=== PATIENT | male | born 1950 | race Caucasian/White ===

== ENCOUNTER 2018-05-02 08:00 | Day surgery (SDC) | payer BC, SELFPAY ==
[2018-05-02 08:45] VITALS: BP 152/85; PULSE 72; RESP 16; TEMP 36.6; O2SAT 98
[2018-05-02] MEDS: Lactated Ringers 1,000 ML 30 ML IV (09:24)
--- NOTE | 2018-05-02 10:43 | W.PM.HP.N ---
Date of service: 05/02/18 Time of Service: 10:44 Assessment and Plan (1) Personal history of colonic polyps: Current visit: Yes Status: Acute I reviewed the colonoscopy procedure with Mr. Forte. I discussed the risks of the procedure with him. All his questions were answered to his satisfaciton. History of Present Illness Chief Complaint: Personal history of colon polyps Narrative: 67 y/o male referred for colorectal cancer screening. He has a history of colon polyps with a tubular adenoma found at last colonoscopy. He has been asymptomatic since his last colonoscopy. He has no family history of colorectal cancer. Review of Systems Review of Systems All systems reviewed & are unremarkable except as noted in HPI and below PFSH Family History Mother Neoplasm Father No problems noted. Sister No problems noted. Medical History Decreased hearing Essential hypertension History of tobacco use Hx of inguinal hernia repair Hyperlipidemia Rosacea S/P medial meniscectomy of right knee Tubular adenoma of colon Social History Smoking/Tobacco Use Status: Former Tobacco Use alcohol intake: current alcohol intake frequency: a few times a month substance use type: does not use Surgical History Colonoscopy - MAC (~2009) HERNIA REPAIR KNEE REPAIR Repair of inguinal hernia Repair of umbilical hernia Meds Home Medications Medication Instructions Recorded Confirmed Type Centrum Silver Tablet 1 ea PO DAILY 08/25/13 05/02/18 History glucosamine sulfate 2KCl 1,000 mg PO DAILY 08/26/13 05/02/18 History Varicella-Zoster Ge Vac,2 of 2 50 mcg IM ONCE vial 01/28/18 05/02/18 History [Shingrix Ge Antigen Component] aspirin 81 mg PO DAILY tab-cap 03/31/18 04/30/18 History Allergies Allergy/AdvReac Type Severity Reaction Status Date / Time No Known Allergies Allergy Unverified 03/31/18 09:31 Exam Const General: cooperative, healthy appearing and comfortable Nutritional Appearance: well nourished and obese Orientation: alert, awake and oriented x3 HENMT Head: normocephalic and atraumatic Ears: hearing grossly normal bilaterally Face and sinus: normal facial exam Mouth: oral mucosae normal Eyes General: appearance normal, both eyes and all related structures Sclera: sclerae normal Pupils: PERRL EOM: EOM intact bilaterally Neck Neck: normal visual inspection, trachea midline and supple Resp Effort & Inspection: normal respiratory effort, no audible wheezes, not labored and no tracheal deviation Cardio Jugular venous pressure: no JVD Rate: regular rate Rhythm: regular rhythm GI Inspection: normal to inspection and non-distended Palpation: soft, no guarding and nontender
--- NOTE | 2018-05-02 10:44 | W.COLOREPORT ---
Date of service: 05/02/18 Time of Service: 10:44 Colonoscopy Report Date of procedure: 05/02/18 Pre-op diagnosis general: Personal history of colon polyps Post-op diagnosis procedure note: other (1. Ascending colon polyp 2. Mild sigmoid diverticulosis) Procedure: Colonoscopy to the cecum with biopsy by cold forceps Surgeon: Paul Everett Anesthesia proc note operative: MAC (Aga Oakes, JEANNIE ASA 2, Mallampati class II) Estimated blood loss (mL): 1 Pathology: other (Ascending colon polyp) Complications: None Disposition: same day Indications: 67 y/o male referred for colorectal cancer screening. He has a history of colon polyps with a tubular adenoma found at last colonoscopy. He has been asymptomatic since his last colonoscopy. He has no family history of colorectal cancer. The colonoscopy procedure was reviewed with Mr. Forte, and the risks discussed. All his questions were answered to his satisfaction. Prep: Miralax/Dulcolax (Prep quality good) Procedure Start Time: 11:03 Procedure End Time: 11:25 Retraction Time: 11 Findings: In examining the colon from cecum to anus, the patient was noted to have a less than 1 cm in greatest diameter polyp in the ascending colon which was subsequently removed. He was also noted to have mild sigmoid diverticulosis. Procedure Description: The patient was seen in the day surgery waiting area. His identification was confirmed, and procedure check. He was then brought to the procedure room. Monitoring for telemetry, blood pressure, oxygen saturation, and end tidal CO2 monitoring were applied. An appropriate time out was performed to confirm, identification, allergies, medication, procedure, was performed. Sedation was titrated for affect by the ENVIRONMENTAL MONITORING SPECIALIST; Once adequate sedation was achieved, I performed a inspection of the external perineum, and a digitial rectal examination. No significant external abnormalities were noted. On digital rectal examination, there was no blood, no masses, good rectal tone, and a normal prostate. I advanced the colonoscope from the anus to the cecum under direct visualization. The cecum was identified by the ileal-cecal valve, and the appendiceal orifice. The scope was then withdrawn in circumferential manner from the cecum to the rectum. In examining the colon, Mr. Forte was noted to have mild sigmoid diverticulosis, and a less than 1 cm in greatest diameter polyp which was subsequently removed from the ascending colon. The scope was then withdrawn into the rectum, and retroflexed. No abnormalities were noted of the rectum or anorectal junction. The scope was then withdrawn, terminating the procedure. There were no complications during the procedure, and the patient tolerated the procedure well. He was returned to the day surgery recovery area in good condition. Plan: Will await pathology before making further recommendations
--- NOTE | 2018-05-02 10:47 | W.PM.DSUDISC ---
Discharge Plan Disposition Patient Disposition: HOME Condition: Good Discharge Details Reason For Visit: Colonoscopy for personal history of colon polyps Attending Provider: Paul Everett Primary Care Provider: Galileo Burrell Home Meds and New Rx's Prescriptions: Continue CENTRUM SILVER TABLET 1 EACH tablet 1 ea PO DAILY RF: 0 glucosamine sulfate 2KCl 1,000 MG tablet 1,000 mg PO DAILY RF: 0 pravastatin 40 MG tablet 40 mg PO DAILY Qty: 90 RF: 4 amlodipine 5 MG tablet 5 mg PO DAILY Qty: 90 RF: 4 Varicella-Zoster Ge Vac,2 of 2 [Shingrix Ge Antigen Component] 50 MCG VIAL 50 mcg IM ONCE RF: 0 aspirin 81 MG tablet,chewable 81 mg PO DAILY RF: 0 Discontinued polyethylene glycol 3350 [Miralax] 17 GM powder in packet 17 g PO DAILY Qty: 255 RF: 0 bisacodyl [Dulcolax (bisacodyl)] 5 MG tablet,delayed release (DR/EC) 5 mg PO ONCE Qty: 4 RF: 0 Discharge Instructions Instructions: Colonoscopy (DC) Activity:: Activity as Tolerated Diet:: As Tolerated Discharge Orders Discharge Orders: Discharge Order (Routine); Ordered 05/02/18 Ordered By: Paul Everett DS: Diagnosis Discharge Diagnosis (1) Personal history of colonic polyps: Status: Acute
--- NOTE | 2018-05-02 11:15 | BOWEL_PTH ---
PATIENT: Jarocho Forte LOC: [facility] U#:[id number] AGE/SX: 67/M ROOM: RE05/02/[address]: Paul Everett DO : 1950 BED: DIS: 05/02/2018 SPEC #: [id number] RECD: 05/02/18 12:51 STATUS: DAREN RE #: [id number] KOBE: 05/02/18 11:[address]: Paul Everett DEPT: Surgical Specimen RECD BY: Gogo Sanabria ENTERED: 05/02/18 12:52 SP TYPE: Bowel OTHR DR: Galileo Burrell Tissues: 1 - BIOPSY BOWEL Procedures: GROSS AND MICRO LEVEL 4 Comments: [id number]
[2018-05-02 11:53] VITALS: BP 148/92; PULSE 70; RESP 16; TEMP 37.2; O2SAT 99
== END 2018-05-02 12:06 | disposition home or self-care (01) ==
PROVIDERS: PCP Specialist/Technologist Athletic Trainer; Visit Provider Surgery
PROC: 0DJD8ZZ Inspection of Lower Intestinal Tract, Via Natural or Artificial Opening Endoscopic (ICD-10-PCS; CPT 45378; principal; 2018-05-02 09:45)
DX: Z12.11 Encounter for screening for malignant neoplasm of colon (principal); Z86.010 Personal history of colon polyps; D12.2 Benign neoplasm of ascending colon; K57.30 Diverticulosis of large intestine without perforation or abscess without bleeding; I10 Essential (primary) hypertension
CPT/HCPCS: 45380; 88305; NC

== ENCOUNTER 2018-08-27 08:32 | Outpatient (REF) | payer BC, SELFPAY ==
[2018-08-27 20:35] LABS: ALT 36 U/L (12-78); AST 22 U/L (15-37); Creatine Kinase 147 U/L (39-308)
== END 2018-08-27 08:52 ==
LOC: NCHCN 08:32
PROVIDERS: PCP Specialist/Technologist Athletic Trainer; Visit Provider Specialist/Technologist Athletic Trainer
DX: E78.5 Hyperlipidemia, unspecified (principal)
CPT/HCPCS: 82550; 84450; 84460

== ENCOUNTER 2019-01-29 10:45 | Outpatient (REF) | payer BC, SELFPAY ==
[2019-01-29 21:13] LABS: Anion Gap 12.1 mmol/L (3-11); BUN 17 mg/dL (7-18); CO2 25.9 mmol/L (21.0-32.0); Calcium 9.1 mg/dL (8.5-10.1); Calculated LDL 205; Chloride 105 mmol/L (98-107); Cholesterol 288 mg/dL (50-200); Glucose 100 mg/dL (70-100); HDL Cholesterol 61 mg/dL (40-60); Potassium 4.1 mmol/L (3.5-5.1); Sodium 143 mmol/L (136-145); Triglyceride 113 mg/dL (30-150)
== END 2019-01-29 11:05 ==
LOC: NCHCN 10:45
PROVIDERS: PCP Specialist/Technologist Athletic Trainer; Visit Provider Specialist/Technologist Athletic Trainer
DX: I10 Essential (primary) hypertension (principal); E78.5 Hyperlipidemia, unspecified
CPT/HCPCS: 80048; 80061; 83721

== ENCOUNTER 2020-02-18 09:16 | Outpatient (REF) | payer BC, SELFPAY ==
[2020-02-18 19:19] LABS: ALT 35 U/L (16-63); AST 21 U/L (15-37); Albumin 4.1 g/dL (3.4-5.0); Alkaline Phosphatase 60 U/L (46-116); Anion Gap 10.1 mmol/L (3-11); BUN 16 mg/dL (7-18); Bilirubin, Total 0.6 mg/dL (0.2-1.0); CO2 24.9 mmol/L (21.0-32.0); CREATININE 0.79 mg/dL (0.70-1.30); Calcium 9.6 mg/dL (8.5-10.1); Calculated LDL 123 mg/dL (<100); Chloride 103 mmol/L (98-107); Cholesterol 195 mg/dL (<200); Glucose 106 mg/dL (74-106); HDL Cholesterol 53 mg/dL (40-60); Potassium 4.3 mmol/L (3.5-5.1); Sodium 138 mmol/L (136-145); Total Protein 7.5 g/dL (6.4-8.2); Triglyceride 98 mg/dL (<150)
[2020-02-18 19:55] LABS: Vitamin D 25 Total 29.4 ng/ml (30-100)
== END 2020-02-18 09:36 ==
LOC: NCHCN 09:16
PROVIDERS: PCP Specialist/Technologist Athletic Trainer; Visit Provider Nurse Practitioner Family
DX: E78.5 Hyperlipidemia, unspecified (principal); I10 Essential (primary) hypertension; E55.9 Vitamin D deficiency, unspecified
CPT/HCPCS: 80053; 80061; 82306

== ENCOUNTER 2021-03-10 09:00 | Outpatient (REF) | payer BC, SELFPAY ==
[2021-03-10 17:01] LABS: Calculated LDL 124 mg/dL (<100); Cholesterol 197 mg/dL (<200); HDL Cholesterol 52 mg/dL (40-60); Triglyceride 107 mg/dL (<150)
[2021-03-10 22:33] LABS: PSA, Screening 0.6 ng/mL (0.0-4.5)
== END 2021-03-10 09:01 | disposition home or self-care (01) ==
LOC: NCHCN 09:00
PROVIDERS: PCP Nurse Practitioner Family; Visit Provider Nurse Practitioner Family
DX: E78.5 Hyperlipidemia, unspecified (principal); Z00.00 Encounter for general adult medical examination without abnormal findings; Z13.5 Encounter for screening for eye and ear disorders
CPT/HCPCS: 80061; 84153

== ENCOUNTER 2021-09-07 16:01 | Outpatient (REF) | payer BC, SELFPAY ==
[2021-09-07 13:32] LABS: ALT 41 U/L (16-63); AST 24 U/L (15-37); Alkaline Phosphatase 59 U/L (46-116); Anion Gap 7.8 mmol/L (3-11); BUN 19 mg/dL (7-18); Bilirubin, Total 0.6 mg/dL (0.2-1.0); CO2 29.2 mmol/L (21.0-32.0); CREATININE 0.9 mg/dL (0.70-1.30); Calcium 9.3 mg/dL (8.5-10.1); Calculated LDL 110 mg/dL (<100); Chloride 102 mmol/L (98-107); Cholesterol 188 mg/dL (<200); Glucose 102 mg/dL (74-106); HDL Cholesterol 56 mg/dL (40-60); Potassium 4.6 mmol/L (3.5-5.1); Sodium 139 mmol/L (136-145); Total Protein 7.4 g/dL (6.4-8.2); Triglyceride 110 mg/dL (<150)
== END 2021-09-07 16:02 | disposition home or self-care (01) ==
LOC: NCHCN 16:01
PROVIDERS: PCP Nurse Practitioner Family; Visit Provider Nurse Practitioner Family
DX: Z00.00 Encounter for general adult medical examination without abnormal findings (principal); I10 Essential (primary) hypertension
CPT/HCPCS: 80053; 80061